=== PATIENT | female | born 2000 | race Caucasian/White ===

== ENCOUNTER 2020-02-14 10:00 | Observation (INO) | payer OTHER ==
[~2020-02-14] VITALS: Ht 162.6 cm; Wt 96.6 kg
[2020-02-14] MEDS ORDERED: PREN-154 PO (11:30)
[2020-02-14 11:33] VITALS: BP 120/73
== END 2020-02-14 11:30 | disposition home or self-care (01) ==
LOC: 4S 10:00
PROVIDERS: ADMIT Obstetrics & Gynecology; ATTEND Obstetrics & Gynecology
DX: Z34.93 Encounter for supervision of normal pregnancy, unspecified, third trimester (principal); Z3A.37 37 weeks gestation of pregnancy
CPT/HCPCS: 59025; 99219

== ENCOUNTER 2020-03-02 12:34 | Inpatient (IN) | payer OTHER ==
[~2020-03-02 12:34] MED LIST: PREN-154 PO
[2020-03-03] MEDS ORDERED: METOCLOPRAMIDE HCL 5 MG/ML 2 ML VIAL IVP PRN (10:15)
[2020-03-03] MEDS ORDERED: RINGERS SOLUTION,LACTATED 1,000 ML IV PRN (10:15)
[2020-03-03] MEDS ORDERED: OXYTOCIN 30 UNITS/LACT RINGERS 500 ML IV ONE (10:15)
[2020-03-03] MEDS ORDERED: CITRIC ACID/SODIUM CITRATE 30 ML SOLUTION UDCUP PO PRN (10:15)
[2020-03-03] MEDS ORDERED: FentaNYL CITRATE-PF 100 MCG/2 ML VIAL IVP PRN (10:15)
[2020-03-03 11:35] LABS: BASOPHILS % (AUTO) 0.6 % (0.0-2.0); EOSINOPHILS % (AUTO) 1.6 % (1.0-6.0); HEMATOCRIT 38.3 % (36-46); HEMOGLOBIN 12.8 g/dL (12.0-16.0); LYMPHOCYTES # (AUTO) 2.6 K/uL (1.0-4.8); LYMPHOCYTES % (AUTO) 24.1 % (22.0-44.0); MEAN CORPUSCULAR HEMOGLOBIN 27.6 pg (26.0-34.0); MEAN CORPUSCULAR HGB CONC 33.6 G/dL (31.0-37.0); MEAN CORPUSCULAR VOLUME 82 fL (80-100); MONOCYTES # (AUTO) 0.5 K/uL (0.1-1.0); MONOCYTES % (AUTO) 4.6 % (2.0-9.0); NEUTROPHILS # (AUTO) 7.5 K/uL (1.8-7.7); NEUTROPHILS % (AUTO) 69.1 % (40.0-70.0); PLATELET COUNT (AUTO) 379 K/uL (150-450); RED BLOOD CELL COUNT(AUTO) 4.65 MIL/uL (4.00-5.20); RED CELL DISTRIBUTION WIDTH 14.1 % (11.5-14.5)
[2020-03-03] MEDS: RINGERS SOLUTION,LACTATED 1,000 ML IV SCH (11:46)
[2020-03-03] MEDS ORDERED: AMPICILLIN SODIUM 2 GM/NS 100 ML IV ONE (12:00)
[2020-03-03] MEDS ORDERED: OXYTOCIN 30 UNITS/LACT RINGERS 500 ML IV PRN (12:00)
[2020-03-03] MEDS ORDERED: ROPIVACAINE HCL/PF 0.2% 100 ML ED ONE ×2 (13:36→17:37)
[2020-03-03 15:36] LABS: COVID AG,FIA SOURCE NASOPHARYNGEAL
[2020-03-03 15:47] VITALS: BP 120/74
[2020-03-03] MEDS: AMPICILLIN SODIUM 1 GM/NS 50 ML IV SCH ×2 (15:58→20:04)
[2020-03-03] MEDS ORDERED: INFLUENZA VIRUS VACCINE QVS 2020-21 (6MO+)/PF 60 MCG/0.5 ML SYRINGE IM ONE (16:00)
[2020-03-03] MEDS ORDERED: OXYGEN THERAPY IH SCH (20:00)
[2020-03-03] MEDS ORDERED: MINERAL OIL 30 ML UDCUP VG ONE (21:30)
[2020-03-04] MEDS: AMPICILLIN SODIUM 1 GM/NS 50 ML IV SCH (00:06)
[2020-03-04] MEDS: RINGERS SOLUTION,LACTATED 1,000 ML IV SCH (00:07)
[2020-03-04] MEDS ORDERED: ROPIVACAINE HCL/PF 0.2% 100 ML ED PRN (00:15)
[2020-03-04] MEDS ORDERED: OxyCODONE HCL/ACETAMINOPHEN 5-325 MG TABLET PO PRN ×2 (01:15)
[2020-03-04] MEDS ORDERED: LANOLIN 7 GM OINTMENT TP PRN (01:15)
[2020-03-04] MEDS ORDERED: LIDOCAINE/PF 1% 30 ML VIAL INJ PRN (01:15)
[2020-03-04] MEDS ORDERED: BENZOCAINE 20%/MENTHOL 56 GM SPRAY CANISTER TP PRN (01:15)
[2020-03-04] MEDS ORDERED: IBUPROFEN 800 MG TABLET PO PRN (01:15)
[2020-03-04] MEDS ORDERED: OXYTOCIN 30 UNITS/LACT RINGERS 500 ML IV ONE (01:15)
[2020-03-04] MEDS ORDERED: GLYCERIN/WITCH HAZEL LEAF 40 PADS JAR TP PRN (01:15)
[2020-03-04] MEDS ORDERED: FentaNYL CITRATE-PF 100 MCG/2 ML VIAL ONE (01:35)
[2020-03-04] MEDS ORDERED: ROPIVACAINE HCL/PF 0.2% 100 ML ED ONE (01:36)
[2020-03-04] MEDS ORDERED: BUPIVACAINE HCL/PF 0.25% 10 ML VIAL ONE (01:36)
[2020-03-04] MEDS ORDERED: ONDANSETRON HCL 4 MG/2 ML VIAL IVP ONE (01:45)
[2020-03-04] MEDS ORDERED: METHYLERGONOVINE MALEATE 0.2 MG/ML VIAL IM ONE (03:30)
[2020-03-04] MEDS: MAGNESIUM HYDROXIDE SUSPENSION 30 ML UDCUP PO PRN (20:56)
[2020-03-05 06:28] LABS: BASOPHILS % (AUTO) 0.4 % (0.0-2.0); EOSINOPHILS % (AUTO) 0.9 % (1.0-6.0); HEMATOCRIT 33.3 % (36-46); HEMOGLOBIN 11.3 g/dL (12.0-16.0); LYMPHOCYTES # (AUTO) 3.8 K/uL (1.0-4.8); LYMPHOCYTES % (AUTO) 25.4 % (22.0-44.0); MEAN CORPUSCULAR HGB CONC 34.1 G/dL (31.0-37.0); MEAN CORPUSCULAR VOLUME 82 fL (80-100); MONOCYTES # (AUTO) 0.8 K/uL (0.1-1.0); MONOCYTES % (AUTO) 5.6 % (2.0-9.0); NEUTROPHILS % (AUTO) 67.7 % (40.0-70.0); PLATELET COUNT (AUTO)-OB 340 K/uL (150-450); RED BLOOD CELL COUNT(AUTO) 4.06 MIL/uL (4.00-5.20); RED CELL DISTRIBUTION WIDTH 14.3 % (11.5-14.5)
[2020-03-05] MEDS: MAGNESIUM HYDROXIDE SUSPENSION 30 ML UDCUP PO PRN (08:47)
[2020-03-05] MEDS ORDERED: IBUP-2071 PO (09:01)
[2020-03-05] MEDS ORDERED: FERR-89 PO (09:02)
[2020-03-05] MEDS ORDERED: DOCU-275 PO ×2 (09:03)
[2020-03-05] MEDS ORDERED: SENNA/DOCUSATE SODIUM 8.6-50 MG TABLET PO ONE (10:00)
== END 2020-03-05 14:30 | disposition home or self-care (01) | DRG 807 ==
LOC: 4S 03-03 10:04 → OBSVTOIN 03-03 10:04
PROVIDERS: ADMIT Obstetrics & Gynecology; ATTEND Obstetrics & Gynecology
PROC: 10E0XZZ Delivery of Products of Conception, External Approach (ICD-10-PCS; principal; 2020-03-04)
PROC: 3E0R3BZ Introduction of Anesthetic Agent into Spinal Canal, Percutaneous Approach (ICD-10-PCS; 2020-03-04)
PROC: 00HU33Z Insertion of Infusion Device into Spinal Canal, Percutaneous Approach (ICD-10-PCS; 2020-03-04)
PROC: 3E02340 Introduction of Influenza Vaccine into Muscle, Percutaneous Approach (ICD-10-PCS; 2020-03-04)
DX: O77.0 Labor and delivery complicated by meconium in amniotic fluid (principal); Z20.828 Contact with and (suspected) exposure to other viral communicable diseases; O99.824 Streptococcus B carrier state complicating childbirth; O69.81X0 Labor and delivery complicated by cord around neck, without compression, not applicable or unspecified; O70.0 First degree perineal laceration during delivery; Z23 Encounter for immunization; Z37.0 Single live birth; Z3A.40 40 weeks gestation of pregnancy
CPT/HCPCS: 86850; 86900; 86901; 87426; 90686; J0290; J2210; J2590; J2795; J3010; J3490; J7120